=== PATIENT | male | born 1975 | race Caucasian/White ===

== ENCOUNTER → 2016-12-09 | Outpatient (CLI) | payer BC ==
--- NOTE | 2016-12-09 11:24 | US ---
EXAMINATION TYPE: US abdomen complete DATE OF EXAM: 12/09/2016 COMPARISON: NONE CLINICAL HISTORY: R10.9 ABD Pain. LLQ pain x 3 months EXAM MEASUREMENTS: Liver Length: 14.5 cm Gallbladder Wall: 0.2 cm CBD: 0.6 cm Spleen: 9.9 cm Right Kidney: 10.8 x 6.2 x 4.7 cm Left Kidney: 11.6 x 6.6 x 5.1 cm Pancreas: wnl; tail is obscured by overlying bowel gas Liver: mildly heterogeneous Gallbladder: There are echogenic nondependent foci within the gallbladder compatible with polyps wit h largest = 0.6 x 0.5 x 0.4cm at fundus Evidence for sonographic Tabares's sign: No CBD: wnl Spleen: wnl Right Kidney: wnl Left Kidney: wnl Upper IVC: wnl Abd Aorta: wnl Bladder: wnl; bilateral ureteral jets were seen; post void bladder is wnl at 3.9ml. Kidneys show norm al cortical medullary differentiation. There is no ascites. IMPRESSION: Normal post void residual volume in the urinary bladder. Gallbladder wall polyps. Common bile duct is borderline dilated. Some limitations to the exam.
== END | disposition home or self-care (01) ==
LOC: RADUSWWP 07:45
PROVIDERS: ATTEND Family Medicine
DX: R10.9 Unspecified abdominal pain (principal)
CPT/HCPCS: 76700; 76857